=== PATIENT | male | born 1945 | race Caucasian/White ===

== ENCOUNTER 2018-10-02 09:07 | Outpatient (CLI) | payer MEDICARE, MEDICAID, SELFPAY ==
--- NOTE | 2018-10-02 09:05 | DI.RAD_ITS ---
SYMPTOM/DIAGNOSIS: ANNUAL F/U LEFT HIP AND PELVIS: Comparison is 10/02/17 There are stable changes of the left total hip replacement. Moderately severe degenerative changes are seen in the right hip. 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 IMPRESSION: Stable left THR.
== END 2018-10-02 09:27 ==
PROVIDERS: PCP Physician Assistant Medical; Visit Provider Student in an Organized Health Care Education/Training Program
DX: Z96.642 Presence of left artificial hip joint (principal); M16.11 Unilateral primary osteoarthritis, right hip; Z47.1 Aftercare following joint replacement surgery
CPT/HCPCS: 99213; 73502

== ENCOUNTER 2023-11-06 22:11 | Emergency (ER) | payer MEDICARE, MEDICAID, SELFPAY ==
[2023-11-06 22:14] VITALS: BP 180/75; PULSE 71; RESP 18; TEMP 37.3; O2SAT 95
[2023-11-06 22:20] VITALS: RESP 18
--- NOTE | 2023-11-06 22:31 | W.ED.GENAD ---
Discharge Plan Disposition Patient Disposition: Home Condition: Stable Discharge Details Clinical Impression: Right leg swelling Primary Care Provider: Dilma Pérez ED Provider: Dung Chow Home Meds and New Rx's Prescriptions: New Eliquis 5 mg tablet 5 mg PO BID Qty: 30 0RF Continued Cromolyn Sodium [Nasal Allergy [place]] 13 ML SPRAY.PUMP 13 ml NS DAILY enalapril maleate 5 MG tablet 0.5 tab PO DAILY Patient Comments: 09/10/17 per pt not taking at this time. jw cetirizine 10 MG tablet 10 mg PO DAILY triamcinolone acetonide 15 GM cream 1 ea Topical PRN PRN aspirin 81 MG tablet,delayed release (DR/EC) 81 mg PO BID Qty: 80 0RF acetaminophen [Acetaminophen Extra Strength] 500 MG tablet 1,000 mg PO Q8H PRN PRNQty: 100 0RF Eliquis 5 mg tablet 5 mg PO ONCE Patient Comments: TAKE ONE TABLET BY MOUTH TWICE A DAY Discharge Instructions Additional Instructions: Call radiology tomorrow to arrange for follow-up ultrasound. You likely do have a blood clot in your leg. It is very important that you do not miss any doses of your Eliquis. You will need to be on this medicine for at least 3 months. You will need to follow-up with your primary care provider within 1 to 2 weeks. Return to the emergency department if you have high fevers, feel more ill or have severe chest pain or difficulty breathing. HPI General Mode of arrival: ambulatory. Date/Time Provider Initiated Documentation: 11/06/23 22:12. Limitations to Documentation: no limitations. Information obtained by: patient. History of Present Illness 78 year old M presents to the emergency department with the chief complaint of right leg swelling, described as moderate, Patient started experiencing this unknown and it has been constant. No relieving factors improve symptom(s), No exacerbating factors reported . Patient notes no other symptoms.. Patient did receive the following treatments prior to arrival, none Related Data Home Medications ?Medication ?Instructions ?Recorded ?Confirmed Cromolyn Sodium [Nasal Allergy 13 ml NS DAILY 08/04/17 11/06/23 [place]] cetirizine 10 mg tablet 10 mg PO DAILY 09/10/17 11/06/23 enalapril maleate 5 mg tablet 0.5 tab PO DAILY 09/10/17 11/06/23 triamcinolone acetonide 0.1 % 1 ea topical PRN PRN 09/10/17 11/06/23 topical cream acetaminophen 500 mg tablet 1,000 mg (2 x 500 mg) PO Q8H PRN 10/03/17 11/06/23 (Acetaminophen Extra Strength) PRN #100 tabs aspirin 81 mg tablet,delayed 81 mg PO BID ##80 10/03/17 11/06/23 release apixaban 5 mg tablet (Eliquis) 5 mg PO BID #30 tabs 11/06/23 apixaban 5 mg tablet (Eliquis) 5 mg PO ONCE 11/06/23 11/06/23 Previous Rx's ?Medication ?Instructions ?Recorded acetaminophen 500 mg tablet 1,000 mg (2 x 500 mg) PO Q8H PRN 10/03/17 (Acetaminophen Extra Strength) PRN #100 tabs aspirin 81 mg tablet,delayed 81 mg PO BID ##80 10/03/17 release apixaban 5 mg tablet (Eliquis) 5 mg PO BID #30 tabs 11/06/23 Allergies Allergy/AdvReac Type Severity Reaction Status Date / Time No Known Drug Allergies Allergy Unverified 10/02/18 09:11 Enviromental allergies Allergy Mild stuffy nose Uncoded 10/02/18 09:11 General Stated Complaint: Vascular BILL: 3 Review of Systems All systems reviewed & are unremarkable except as noted in HPI and below Constitutional Constitutional: Denies chills, Denies fever(s) and Denies weakness Cardiovascular Cardiovascular: Denies chest pain and Denies dyspnea Respiratory Respiratory: Denies cough and Denies dyspnea Gastrointestinal Gastrointestinal: Denies abdominal pain, Denies nausea and Denies vomiting Musculoskeletal Musculoskeletal: Denies joint swelling Neurologic Neurologic: Denies weakness Exam Const General: no acute distress Orientation: alert [facility] Head: normal to inspection Ears: external ears normal General nose exam: external nose normal Mouth: moist mucous membranes Eyes General: appearance normal, both eyes and all related structures Neck Neck: normal visual inspection Resp Effort & Inspection: normal respiratory effort and able to speak in complete sentences Cardio Rate: regular rate Skin General skin exam: no rashes or lesions noted Neuro General: patient alert and patient oriented x3 Extrem General: full ROM and capillary refill normal Psych Mental Status: mental status grossly normal Course Vital Signs Vital signs: Vital Signs Temperature 37.3 C 11/06/23 22:14 Pulse 71 11/06/23 22:14 Respiratory Rate 18 11/06/23 22:14 Blood Pressure 180/75 H 11/06/23 22:14 Pulse Oximetry 95 11/06/23 22:14 Temperature 37.3 C 11/06/23 22:14 Temperature Source Oral 11/06/23 22:14 Pulse 71 11/06/23 22:14 Respiratory Rate 18 11/06/23 22:20 Respiratory Effort Normal 11/06/23 22:20 Respiratory Depth Normal 11/06/23 22:20 Respiratory Pattern Normal 11/06/23 22:20 Blood Pressure 180/75 H 11/06/23 22:14 Pulse Oximetry 95 11/06/23 22:14 Oxygen Delivery Method Room Air 11/06/23 22:14 Oxygen Flow Rate 0 11/06/23 22:14 Pain Level 0 11/06/23 22:20 Medical Decision Making 78-year-old male who was recently diagnosed with PE earlier this month was placed on Eliquis, comes in with right leg swelling. Patient is alert oriented x 4 but is a very poor historian, he is unsure of exactly when he felt his leg was swollen. He says he had his Cisse catheter removed at [facility] yesterday when he noticed the swelling of his leg. Unclear why finally given tonight he denies any pain in his leg denies any fevers, no chest pain, no difficulty breathing. His right leg is swollen from the distal mid thigh down, there is no discoloration of the leg he has intact cap refill and sensation in the legs, full range of motion of the leg without pain. The patient states that he does forget to take his Eliquis dose and does not take it reliably. I had an extensive discussion with him about the importance of taking it to treat his blood clot in his lungs and the clot he likely has in his leg. He has no findings on exam to suggest phlegmasia cerulea dolens or alba dolens. I will place an order to have him come back tomorrow for an ultrasound and possibly seek care management about having home health see him for medication management. He says he is not sure how much more of his Eliquis he has left. He says he did take it tonight. 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 Yen with anterior approach Medical History (Updated 11/06/23 @ 22:32 by Dung Chow MD) Allergic rhinitis Social History Smoking/Tobacco Use Status: Never Smoking risk assessment performed?: Yes Drug use: Never
--- NOTE | 2023-11-06 22:36 | NUR.NOTE ---
Ultrasound req faxed to DI for 11/07/23 R leg swelling. Patient given copy of requisition and advised to call DI scheduling anytime after 7am to make appt.Nursing Note:
== END 2023-11-06 22:41 | disposition home or self-care (01) ==
PROVIDERS: Emergency Provider Emergency Medicine; PCP Physician Assistant Medical
DX: R22.41 Localized swelling, mass and lump, right lower limb (principal); Z86.711 Personal history of pulmonary embolism; Z79.01 Long term (current) use of anticoagulants; Z79.82 Long term (current) use of aspirin
CPT/HCPCS: 99283

== ENCOUNTER → 2023-11-07 08:56 | Outpatient (CLI) | payer MEDICARE, MEDICAID, SELFPAY ==
--- NOTE | 2023-11-07 | DI.US_ITS ---
Exam(s) US LOWER EXTREMITY VENOUS RT EXAM: US LOWER EXTREMITY VENOUS RT CLINICAL HISTORY: RT LEG SWELLING, R22.41 TECHNIQUE: Grayscale, color, and doppler imaging of the deep venous system of the lower extremity w as performed. FINDINGS: There is extensive DVT in the right lower extremity involving all of the deep veins of the calf and t high and extending above the inguinal ligament into at least the right iliac veins. This intralumina l thrombus measures greater than 65 cm length and is also noted to extend into the greater saphenous vein at the saphenofemoral junction. IMPRESSION: Extensive DVT involving all deep veins of the right calf and thigh and indeed extending above the rig ht inguinal ligament into the right iliac veins. This patient is at high risk for pulmonary embolus. Called by myself to ER physician. DATA REPOSITORY:
== END ==
PROVIDERS: PCP Physician Assistant Medical; Visit Provider Emergency Medicine
DX: R22.41 Localized swelling, mass and lump, right lower limb (principal); I82.491 Acute embolism and thrombosis of other specified deep vein of right lower extremity
CPT/HCPCS: 93971

== ENCOUNTER 2023-11-07 13:21 | Emergency (ER) | payer MEDICARE, MEDICAID, SELFPAY ==
[2023-11-07 13:26] VITALS: BP 147/94; PULSE 72; RESP 16; TEMP 36.5; O2SAT 97
--- NOTE | 2023-11-07 14:27 | W.ED.GENAD ---
Discharge Plan Disposition Patient Disposition: Home Condition: Stable Discharge Details Clinical Impression: Acute deep vein thrombosis (DVT) of right lower extremity Primary Care Provider: Dilma Pérez ED Provider: Dung Chow Home Meds and New Rx's Prescriptions: Continued Cromolyn Sodium [Nasal Allergy [place]] 13 ML SPRAY.PUMP 13 ml NS DAILY cetirizine 10 MG tablet 10 mg PO DAILY triamcinolone acetonide 15 GM cream 1 ea Topical PRN PRN aspirin 81 MG tablet,delayed release (DR/EC) 81 mg PO BID Qty: 80 0RF acetaminophen [Acetaminophen Extra Strength] 500 MG tablet 1,000 mg PO Q8H PRN PRNQty: 100 0RF Eliquis 5 mg tablet 5 mg PO ONCE Patient Comments: TAKE ONE TABLET BY MOUTH TWICE A DAY Eliquis 5 mg tablet 5 mg PO BID Qty: 30 0RF No Action enalapril maleate 5 MG tablet 0.5 tab PO DAILY Patient Comments: 09/10/17 per pt not taking at this time. jw Discharge Instructions Additional Instructions: it is important that you take your eliquis as prescribed follow up with your primary care provider within 1-2 weeks if you feel more ill or have chest pain or difficulty breathing return to the emergency department HPI General Mode of arrival: ambulatory. Date/Time Provider Initiated Documentation: 11/07/23 13:33. Limitations to Documentation: no limitations. Information obtained by: patient. History of Present Illness 78 year old M presents to the emergency department with the chief complaint of right leg swelling, u/s results, and is localized to the right and lower extremity. Patient reports no radiation. Patient started experiencing this week(s) (2) and it has been constant. No relieving factors improve symptom(s), No exacerbating factors reported . Patient notes no other symptoms.. Related Data Home Medications ?Medication ?Instructions ?Recorded ?Confirmed Cromolyn Sodium [Nasal Allergy 13 ml NS DAILY 08/04/17 11/06/23 [place]] cetirizine 10 mg tablet 10 mg PO DAILY 09/10/17 11/06/23 enalapril maleate 5 mg tablet 0.5 tab PO DAILY 09/10/17 11/06/23 triamcinolone acetonide 0.1 % 1 ea topical PRN PRN 09/10/17 11/06/23 topical cream acetaminophen 500 mg tablet 1,000 mg (2 x 500 mg) PO Q8H PRN 10/03/17 11/06/23 (Acetaminophen Extra Strength) PRN #100 tabs aspirin 81 mg tablet,delayed 81 mg PO BID ##80 10/03/17 11/06/23 release apixaban 5 mg tablet (Eliquis) 5 mg PO BID #30 tabs 11/06/23 apixaban 5 mg tablet (Eliquis) 5 mg PO ONCE 11/06/23 11/06/23 Previous Rx's ?Medication ?Instructions ?Recorded acetaminophen 500 mg tablet 1,000 mg (2 x 500 mg) PO Q8H PRN 10/03/17 (Acetaminophen Extra Strength) PRN #100 tabs aspirin 81 mg tablet,delayed 81 mg PO BID ##80 10/03/17 release apixaban 5 mg tablet (Eliquis) 5 mg PO BID #30 tabs 11/06/23 Allergies Allergy/AdvReac Type Severity Reaction Status Date / Time Enviromental allergies Allergy Mild stuffy nose Uncoded 11/07/23 13:31 General Stated Complaint: Recheck BILL: 4 Review of Systems All systems reviewed & are unremarkable except as noted in HPI and below Constitutional Constitutional: Denies chills, Denies fever(s) and Denies weakness Cardiovascular Cardiovascular: Denies chest pain and Denies dyspnea Respiratory Respiratory: Denies cough and Denies dyspnea Gastrointestinal Gastrointestinal: Denies abdominal pain, Denies nausea and Denies vomiting Musculoskeletal Musculoskeletal: Denies numbness and Reports other (right leg swelling) Neurologic Neurologic: Denies numbness and Denies weakness Exam Const General: no acute distress Orientation: alert [facility] Head: normal to inspection Ears: external ears normal General nose exam: external nose normal Mouth: moist mucous membranes Eyes General: appearance normal, both eyes and all related structures Neck Neck: normal visual inspection Resp Effort & Inspection: normal respiratory effort and able to speak in complete sentences Cardio Rate: regular rate Skin General skin exam: no rashes or lesions noted Neuro General: patient alert and patient oriented x3 Extrem General: full ROM and capillary refill normal Psych Mental Status: mental status grossly normal Course Vital Signs Vital signs: Vital Signs Temperature 36.5 C 11/07/23 13:26 Pulse 72 11/07/23 13:26 Respiratory Rate 16 11/07/23 13:26 Blood Pressure 147/94 H 11/07/23 13:26 Pulse Oximetry 97 11/07/23 13:26 Temperature 36.5 C 11/07/23 13:26 Temperature Source Temporal Artery Scan 11/07/23 13:26 Pulse 72 11/07/23 13:26 Respiratory Rate 16 11/07/23 13:26 Blood Pressure 147/94 H 11/07/23 13:26 Pulse Oximetry 97 11/07/23 13:26 Medical Decision Making 78 year old male with hx of PE and started eliquis earlier this month comes in for right leg swelling for several weeks. Seen last night for the same returned today for u/s which confirms DVT. HE has not been taking his eliquis twice daily reliably per patient and misses doses. He denies leg pain, chest pain, dyspnea. His leg is swollen from just proximal to the knee to the foot. He has no discoloaration, normal sensation and pulses. No findings to suggest phlegmasia alba dolens nor cerulea dolens. Advised he needs to take his eliquis twice daily, will have care management meet with him as he is interested in home health nursing for med management. 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 Yen with anterior approach Medical History (Updated 11/07/23 @ 14:32 by Dung Chow MD) Allergic rhinitis Social History Smoking/Tobacco Use Status: Never Smoking risk assessment performed?: Yes Drug use: Never
--- NOTE | 2023-11-07 21:09 | NUR.NOTE ---
Pt placed on care management referral list for Home Health Nursing to be seen within 1 week.
== END 2023-11-07 14:53 | disposition home or self-care (01) ==
PROVIDERS: Emergency Provider Emergency Medicine; PCP Physician Assistant Medical
DX: I82.4Y1 Acute embolism and thrombosis of unspecified deep veins of right proximal lower extremity (principal); Z86.711 Personal history of pulmonary embolism; Z79.01 Long term (current) use of anticoagulants; Z53.29 Procedure and treatment not carried out because of patient's decision for other reasons
CPT/HCPCS: 99282; 93971

== ENCOUNTER 2025-04-11 16:11 | Outpatient (CLI) | payer MEDICARE, MEDICAID, SELFPAY ==
[2025-04-11 16:20] LABS: Abs Immature Grans 0.02 10^3/uL (0.0-0.06); HCT 34.2 % (40.0-50.0); HGB 11.0 g/dL (13.5-17.5); Immature Grans % 0.3 %; MCH 29.3 pg (27.0-33.0); MCHC 32.2 % (32.0-36.0); MCV 91 fL (80-95); MPV 9.7 fL (8.0-11.0); Platelet Count 237 10^3/uL (130-400); RBC 3.76 10^6/uL (4.36-5.78); RDW 13.1 % (11.8-14.1); RDW-SD 43.6 fL; WBC 6.77 10^3/uL (4.4-10.8)
[2025-04-11 17:34] LABS: Anion Gap 9.4 mmol/L (3-11); BUN 63 mg/dL (9-23); CO2 24.6 mmol/L (20.0-31.0); Calcium 9.2 mg/dL (8.3-10.6); Chloride 107 mmol/L (98-107); Glucose 113 mg/dL (74-106); Potassium 4.8 mmol/L (3.5-5.1); Sodium 141 mmol/L (136-145)
== END 2025-04-11 16:12 | disposition home or self-care (01) ==
LOC: LBO 16:12
PROVIDERS: PCP Physician Assistant Medical; Visit Provider Urology
DX: C67.4 Malignant neoplasm of posterior wall of bladder (principal)
CPT/HCPCS: 36415; 80048; 85025

== ENCOUNTER 2025-04-15 12:46 | Outpatient (CLI) | payer MEDICARE, MEDICAID, SELFPAY ==
[2025-04-15 13:18] LABS: ALT < 7 U/L (10-49); AST 11 U/L (<34); Albumin 4.2 g/dL (3.2-5.0); Alkaline Phosphatase 82 U/L (46-116); Anion Gap 7.9 mmol/L (3-11); BUN 54 mg/dL (9-23); Bilirubin, Total 0.3 mg/dL (0.2-1.2); CO2 27.1 mmol/L (20.0-31.0); Calcium 9.2 mg/dL (8.3-10.6); Chloride 108 mmol/L (98-107); Glucose 90 mg/dL (74-106); Potassium 4.4 mmol/L (3.5-5.1); Sodium 143 mmol/L (136-145); Total Protein 8.2 g/dL (5.7-8.2)
== END 2025-04-15 12:47 | disposition home or self-care (01) ==
LOC: LBO 12:47
PROVIDERS: PCP Physician Assistant Medical
DX: C67.9 Malignant neoplasm of bladder, unspecified (principal)
CPT/HCPCS: 36415; 80053